=== PATIENT | male | born 1990 | race Asian ===

== ENCOUNTER → 2024-05-18 | Outpatient (CLI) | payer OTHER | LOC: M CARPUL 14:32 | PROVIDERS: ATTEND Internal Medicine Pulmonary Disease | DX: R06.02 Shortness of breath (principal) ==

== ENCOUNTER → 2024-05-30 | Outpatient (CLI) | payer OTHER ==
[~2024-05-30] MED LIST: METHACHOLINE KIT (6 VIAL.NEB PREMIX) INH ONE
== END ==
LOC: M CARPUL 13:31 → EDUNIT# 14:00
PROVIDERS: ATTEND Internal Medicine Pulmonary Disease
DX: R06.02 Shortness of breath (principal)
CPT/HCPCS: 94070; J7674

== ENCOUNTER → 2024-05-31 | Outpatient (CLI) | payer OTHER | LOC: M PLAIMG 14:18 | PROVIDERS: ATTEND Internal Medicine Pulmonary Disease | DX: R06.02 Shortness of breath (principal) ==

== ENCOUNTER → 2024-10-04 | Outpatient (CLI) | payer OTHER | LOC: M RAD 07:31 | PROVIDERS: ATTEND Internal Medicine | DX: M25.531 Pain in right wrist (principal); M25.532 Pain in left wrist; M62.81 Muscle weakness (generalized) ==